=== PATIENT | male | born 1995 | race Asian ===

== ENCOUNTER 2024-07-01 10:03 | Emergency (ER) | payer SELFPAY ==
[2024-07-01 10:03] VITALS: BMI 29.2
[2024-07-01 10:05] VITALS: BP 138/94
--- NOTE | 2024-07-01 10:32 | ED.GENMED ---
History of Present Illness
General
Chief Complaint: Flank Pain
Source: patient
Exam Limitations: none
Time Seen by Provider: 07/01/24 10:20
Nursing documentation reviewed up to this point in time: agreed with
History of Present Illness
History of Present Illness:
29-year-old male without significant past medical history presenting to the emergency department today with concerns of right-side flank pain starting this morning described as intermittently sharp and ongoingly achy no urinary symptoms 1 episode of
vomiting no chest pain shortness of breath no similar symptoms in the past.d
Past History
Past History
ED Past Medical History: None
ED Past Surgical History: None
Social History
Tobacco: Smoker
Alcohol: Occasional
Drug: None
Living: with family
Review of Systems
Review of Systems
Allergies reviewed?: Yes
All Other Systems: ROS reviewed and negative except as documented in HPI and ROS
Phy Exam
Physical Exam
Physical Exam:
GENERAL: Alert , in no apparent distress
EYE: pupils equal and reactive
NECK: Supple, no significant adenopathy.
ENT: o/p clr, mmm.
CARDIAC: Regular rate and rhythm .
LUNGS: Clear breath sounds bilaterally, no acute respiratory distress, no wheezes/rales/rhonchi
ABDOMEN: Soft, without focal tenderness, no r/g, no cvat
NEUROLOGICAL: Alert and oriented, no focal neuro deficits
SKIN: Warm and dry, skin intact.
MUSCULOSKELETAL: No edema, well perfused.
PSYCH: Normal and appropriate interaction.
Course
Orders/Labs/Results
Orders:
Orders
07/01/24 10:35
0.9% Sodium Chloride 1000 ml [Nss] 1,000 ml IV BOLUS
Ketorolac [Toradol] 30 mg IV NOW STA
Ondansetron Injectable [Zofran] 4 mg IV NOW STA
07/01/24 10:39
CT Abd/pel Without Iv Or Oral Urgent
Comment:
Reason For Exam: right flank pain
07/01/24 10:52
Complete Blood Count/With Diff Urgent
Comprehensive Metabolic Panel Urgent
Urinalysis Reflex To Culture Urgent
Date Specimen was Collected: 07/01/24
Time Specimen was Collected: 10:51
Urine Microscopic Reflex Cult Urgent
07/01/24 13:27
Tamsulosin [Flomax] 0.4 mg PO NOW STA
07/01/24 13:31
Doxycycline [Vibramycin] 100 mg PO NOW STA
Abnormal Lab Results
07/01/24
10:52
RBC 7.01 H 10^6/uL
(4.70-6.10)
MCV 61.3 L fL
(80.0-94.0)
MCH 19.4 L pg
(27.0-31.0)
MCHC 31.6 L g/dL
(33.0-37.0)
RDW 18.7 H %
(11.5-14.5)
Absolute Monos (auto) 0.7 H 10^3/uL
(0.1-0.6)
Glucose 164 H mg/dl
(70-99)
AST 65 H U/L
(17-59)
ALT 70 H U/L
(0-50)
Urine Ketones Trace A
(Negative)
Ur Occult Blood Reflex 4+ A
(Negative)
Urine Bilirubin 1+ A
(Negative)
Leukocyte Esterase Rfl Trace A
(Negative)
Urine RBC >100 A /HPF
(0-2)
Urine Bacteria (Reflex) Few A
(Negative)
07/01/24 10:52
07/01/24 10:52
Vital Signs
Initial and Last Documented VS:
Initial Vital Signs
Temp Pulse Resp BP Pulse Ox
100.8 F H 75 18 138/94 98
07/01/24 10:05 07/01/24 10:05 07/01/24 10:05 07/01/24 10:05 07/01/24 10:05
Last Documented Vital Signs
Temp Pulse Resp BP Pulse Ox
97.9 F 65 16 106/64 99
07/01/24 11:53 07/01/24 12:00 07/01/24 12:00 07/01/24 12:00 07/01/24 12:00
MDM/Problems Addressed
MDM/Problems Addressed:
29-year-old male presenting to the emergency department today with concerns of right-sided flank discomfort that started this morning. Upon arrival patient with low-grade temperature otherwise vital signs are normal. Patient without significant
reproducible pain. Symptoms potentially consistent with kidney stone. Plan for CT scan labs for further assessment. CT scan confirming right-sided 5 mm proximal ureteral stone. Associated hydro. No white count no evidence of infection on
urinalysis. Temperature improved after receiving Toradol. Unclear specific explanation of initial fever. This was discussed with urology they recommended treating with doxycycline Flomax pain medication but otherwise can trial passage as
outpatient return precautions were given but otherwise patient very well up. Stable for outpatient management.
*Critical Care Note
Total Time (30-74mins, 75-104mins- exclusive of procedures): Not Applicable
ED Attending Note
-
Portions of this chart may have been created with voice recognition software.� Occasional wrong word or��sound alike� substitutions may have occurred due to the inherent limitations of voice recognition software.
Discharge Plan
Departure
Patient Disposition: Home (Routine Discharge)
Date of Disposition: 07/01/24
Time of Disposition: 13:34
Patient with high blood pressure during this ER visit?: No
Condition: Good
Covid-19: Not Applicable
Discharge Problem:
Calculus, ureteral
Instructions: Renal Colic (DC), How to Strain Your Urine
Prescriptions:
New
ibuprofen 600 mg tablet
600 mg PO Q8H PRN (Reason: Pain) 7 Days Qty: 20 0RF
tamsulosin [Flomax] 0.4 mg capsule
0.4 mg PO DAILY Qty: 7 0RF
ondansetron 4 mg tablet,disintegrating
4 mg PO Q8H PRN (Reason: nausea and vomiting) Qty: 7 0RF
doxycycline hyclate 100 mg tablet
100 mg PO BID 7 Days Qty: 14 0RF
Referrals:
Manuel Mendes MD [Family Provider] -
Saravanan Andrade Jr., MD [Active] - Follow up in 5-7 days
Activity Restrictions/Additional Instructions:
You came to the emergency department today with concerns of flank pain you are found to have a ureteral stone. Please urinate into a strainer and take the medication is not up with symptoms until hopeful passage at home. Otherwise follow-up
closely with urology for further assessment within the next week. Return to the emergency department immediately for any worsening, new or concerning symptoms.
Interventions
Interventions:
*Risk Screen - Suicide Last Done: 07/01/24 10:05
*General Assessment Last Done: 07/01/24 10:05
*Neglect/Abuse Screening Last Done: 07/01/24 10:05
ED- Fall Risk Assessment Last Done: 07/01/24 11:00
BA-Yofswm-Vutiexywtj Assessment Last Done: 07/01/24 11:00
ED-Male Genitourinary Assessment Last Done: 07/01/24 11:00
Discharge Date and Time
Print Language: UKRAINIAN
[2024-07-01] MEDS: NSS 1000 IV (10:47)
[2024-07-01] MEDS: TORADOL 30 MG IV (10:48)
[2024-07-01] MEDS: ZOFRAN 4 MG IV (10:49)
[2024-07-01 11:03] LABS: Urine Albumin Trace (Neg - Trace); Urine Bilirubin 1+ (Negative); Urine Character Clear (Clear); Urine Color Yellow; Urine Glucose Negative (Negative); Urine Ketone Trace (Negative); Urine Leukocyte Trace (Negative); Urine Nitrite Negative (Negative); Urine Occult Blood 4+ (Negative); Urine Specific Gravity 1.025 (<1.030); Urine Urobilinogen 1+ (Neg - 1+)
[2024-07-01 11:19] LABS: ALT (SGPT) 70 U/L (0-50); AST (SGOT) 65 U/L (17-59); Albumin 4.8 g/dl (3.5-5.0); Alkaline Phosphatase 79 U/L (38-126); Blood Urea Nitrogen 13 mg/dl (9-20); Calcium 9.6 mg/dl (8.4-10.2); Carbon Dioxide 24 mmol/L (22-30); Chloride 104 mmol/L (98-107); Estimated Creatinine Clearance > 125 ml/min; Glucose 164 mg/dl (70-99); Potassium 4.1 mmol/L (3.5-5.1); Sodium 140 mmol/L (135-145); Total Bilirubin 1.3 mg/dl (0.2-1.3); Total Protein 7.3 g/dl (6.3-8.2); Urine Bacteria Few (Negative); Urine Mucus Moderate; eGFR > 60.00
[2024-07-01 11:23] LABS: Urine Red Blood Cell >100 /HPF (0-2)
[2024-07-01 11:24] LABS: % Basophils 1.3 % (0-2); % Eosinophils 4.2 % (0-6); % Immature Granulocytes 0.4 % (0-0.5); % Lymphocytes 23.2 % (20.5-51.1); % Monocytes 6.6 % (1.7-9.3); % Neutrophils 64.3 % (42.2-75.2); Absolute Basophils 0.1 10^3/uL (0-0.2); Absolute Eosinophils 0.4 10^3/uL (0-0.7); Absolute Lymphocytes 2.3 10^3/uL (1.2-3.4); Absolute Monocytes 0.7 10^3/uL (0.1-0.6); Absolute Neutrophils 6.3 10^3/uL (1.4-6.5); Hemoglobin 13.6 g/dL (13.0-18.0); Mean Corp Hgb Conc. 31.6 g/dL (33.0-37.0); Mean Corpuscular Hgb 19.4 pg (27.0-31.0); Mean Corpuscular Volume 61.3 fL (80.0-94.0); Mean Platelet Volume 10.2 fL (7.4-10.4); Nucleated Red Blood Cells % 0 % (-); Platelet Count 225 10^3/uL (130-400); Red Blood Cell Count 7.01 10^6/uL (4.70-6.10); Red Cell Dist. Width 18.7 % (11.5-14.5); White Blood Cell Count 9.8 10^3/uL (4.8-10.8)
[2024-07-01 11:26] LABS: Urine Hyaline Cast 0-2 /LPF (0-2); Urine Squamous Cell 0-2 /LPF (Few)
[2024-07-01 11:52] VITALS: BP 102/64
[2024-07-01 12:00] VITALS: BP 106/64
[2024-07-01 13:00] VITALS: BP 103/66
[2024-07-01] MEDS: VIBRAMYCIN 100 MG PO (13:42)
[2024-07-01] MEDS: FLOMAX 0.4 MG PO (13:42)
== END 2024-07-01 13:49 | disposition home or self-care (01) ==
LOC: EMR 10:03
PROVIDERS: Physician Assistant; EMERGENCY PHYSICIAN Student in an Organized Health Care Education/Training Program; FAMILY PHYSICIAN Family Medicine
DX: N20.1 Calculus of ureter (principal); R11.10 Vomiting, unspecified; F32.A Depression, unspecified; F17.200 Nicotine dependence, unspecified, uncomplicated
CPT/HCPCS: 99284; 96374; 96375; 96361; 74176; 80053; 81003; 81015; 85025

== ENCOUNTER 2024-07-22 11:49 | Emergency (ER) | payer SELFPAY ==
[2024-07-22 11:56] VITALS: BP 130/92
--- NOTE | 2024-07-22 12:36 | ED.GENMED ---
History of Present Illness
General
Chief Complaint: Flank Pain
Source: patient, records, previous radiology exam and previous hospital records
Exam Limitations: none
Time Seen by Provider: 07/22/24 12:20
Nursing documentation reviewed up to this point in time: agreed with
History of Present Illness
History of Present Illness:
29-year-old male presents with right flank pain onset 2 and half weeks ago seen in the ER diagnosed with a right proximal kidney stone discharged home has a follow-up appointment next week with Dr. Andrade feeling okay initially states the past 3 to
4 days pain has been pretty severe no fevers but does feel nauseous, pain radiates in the right lower abdomen this is his first kidney stone, does not believe that he passed a stone
Past History
Past History
ED Past Medical History: None
ED Past Surgical History: None
Social History
Tobacco: Smoker
Alcohol: Occasional
Drug: None
Personal:
Living: with family
Employment: Employed
Review of Systems
Review of Systems
All Other Systems: Not applicable
Constitutional: Denies fever or fatigue
EENT: Reports no symptoms
Respiratory: Reports no symptoms
Cardiac: Reports no symptoms
ABD/GI: Reports abdominal pain and nausea
: Reports flank pain
Musculoskeletal: Reports no symptoms
Phy Exam
Physical Exam
Physical Exam:
Physical Exam
General: 29 male looks uncomfortable
Neck: No jaundice
Heart: s1/s2 regular rate and rhythm, no murmur. equal radial pulses.
Lungs: no acute respiratory distress. clear bilaterally
Abdomen: Tender in the right flank and right mid abdomen
Neuro: alert and oriented. no focal neurological deficits
Skin: no rash
Psychiatric: well kept. interactive and cooperative
Extremities: no edema.
Course
Orders/Labs/Results
Orders:
Orders
07/22/24 12:29
CT Abd/pel Without Iv Or Oral Urgent
Comment:
Reason For Exam: R lank pain
IV Insert/Care/Rem.- Treatment PRN
0.9% Sodium Chloride 1000 ml [Nss] 1,000 ml IV BOLUS
HYDROmorphone [Dilaudid] 1 mg IV NOW STA
Ondansetron Injectable [Zofran] 4 mg IV NOW STA
07/22/24 12:49
Complete Blood Count/With Diff Urgent
Comprehensive Metabolic Panel Urgent
Urinalysis Reflex To Culture Urgent
Date Specimen was Collected: 07/22/24
Time Specimen was Collected: 12:37
Urine Microscopic Reflex Cult Urgent
07/22/24 14:03
Ketorolac [Toradol] 30 mg IV NOW STA
Abnormal Lab Results
07/22/24
12:49
WBC 12.3 H 10^3/uL
(4.8-10.8)
RBC 7.19 H 10^6/uL
(4.70-6.10)
MCV 60.9 L fL
(80.0-94.0)
MCH 19.2 L pg
(27.0-31.0)
MCHC 31.5 L g/dL
(33.0-37.0)
RDW 18.2 H %
(11.5-14.5)
MPV 11.2 H fL
(7.4-10.4)
Absolute Neuts (auto) 7.5 H 10^3/uL
(1.4-6.5)
Absolute Monos (auto) 1.1 H 10^3/uL
(0.1-0.6)
Glucose 122 H mg/dl
(70-99)
Total Bilirubin 2.3 H mg/dl
(0.2-1.3)
ALT 61 H U/L
(0-50)
Ur Occult Blood Reflex 1+ A
(Negative)
Leukocyte Esterase Rfl Trace A
(Negative)
Urine RBC 16-20 A /HPF
(0-2)
Urine Bacteria (Reflex) Few A
(Negative)
07/22/24 12:49
07/22/24 12:49
Vital Signs
Initial and Last Documented VS:
Initial Vital Signs
Temp Pulse Resp BP Pulse Ox
98.5 F 85 18 130/92 98
07/22/24 11:56 07/22/24 11:56 07/22/24 11:56 07/22/24 11:56 07/22/24 11:56
Last Documented Vital Signs
Temp Pulse Resp BP Pulse Ox
98.5 F 69 18 120/72 97
07/22/24 11:56 07/22/24 15:22 07/22/24 15:22 07/22/24 15:22 07/22/24 15:22
MDM/Problems Addressed
Differential Diagnosis Includes:
Renal colic, ureteral colic, UTI dehydration
MDM/Problems Addressed:
Right flank
*Critical Care Note
Total Time (30-74mins, 75-104mins- exclusive of procedures): Not Applicable
Update Note
Update Note:
Update labs noted CAT scan noted try to get the patient comfortable, message sent to urology
CT reviewed patient's stone is migrating may be passable he is pain-free now will sent home with stronger pain meds he has an appointment on the 10th already scheduled
ED Attending Note
-
Portions of this chart may have been created with voice recognition software.� Occasional wrong word or��sound alike� substitutions may have occurred due to the inherent limitations of voice recognition software.
Discharge Plan
Departure
Patient Disposition: Home (Routine Discharge)
Date of Disposition: 07/22/24
Time of Disposition: 14:59
Patient with high blood pressure during this ER visit?: No
Condition: Good
Covid-19: Not Applicable
Discharge Problem:
Kidney stone on right side
Instructions: Kidney Stones (DC), Renal Colic (DC), Flank Pain (DC), How to Strain Your Urine, Narcotic Pain Medication
Prescriptions:
New
oxycodone 5 mg tablet
5 mg PO Q4H PRN (Reason: Pain) Qty: 20 0RF
ibuprofen 600 mg tablet
600 mg PO Q6H PRN (Reason: Pain) Qty: 30 0RF
tamsulosin [Flomax] 0.4 mg capsule
0.4 mg PO HS Qty: 10 0RF
ondansetron 4 mg tablet,disintegrating
4 mg PO Q8H PRN (Reason: nausea and vomiting) Qty: 20 0RF
No Action
cetirizine 10 mg Tablet
10 mg PO DAILY PRN (Reason: allergies )
Referrals:
Manuel Mendes MD [Family Provider] -
Activity Restrictions/Additional Instructions:
Keep your appointment with Dr. Andrade
Interventions
Interventions:
*Risk Screen - Suicide Last Done: 07/22/24 12:58
*General Assessment Last Done: 07/22/24 12:58
*Neglect/Abuse Screening Last Done: 07/22/24 12:58
ED- Fall Risk Assessment Last Done: 07/22/24 12:58
*ED COVID-19 Vaccine History Last Done: 07/22/24 12:58
*Nursing Disposition Last Done: 07/22/24 15:22
RW-Ieejbl-Hwcjefrgld Assessment Last Done: 07/22/24 12:57
ED-Male Genitourinary Assessment Last Done: 07/22/24 12:57
Discharge Date and Time
Discharge Date/Time: 07/22/24 15:23
Print Language: FRISIAN
[2024-07-22] MEDS: DILAUDID 1 MG IV (12:46)
[2024-07-22] MEDS: NSS 1000 IV (12:46)
[2024-07-22] MEDS: ZOFRAN 4 MG IV (12:47)
[2024-07-22 12:59] LABS: Urine Albumin Negative (Neg - Trace); Urine Bilirubin Negative (Negative); Urine Character Clear (Clear); Urine Color Yellow; Urine Glucose Negative (Negative); Urine Ketone Negative (Negative); Urine Leukocyte Trace (Negative); Urine Nitrite Negative (Negative); Urine Occult Blood 1+ (Negative); Urine Specific Gravity 1.015 (<1.030); Urine Urobilinogen Negative (Neg - 1+); Urine pH 6.5 (5.0-9.0)
[2024-07-22 13:24] LABS: Urine Red Blood Cell 16-20 /HPF (0-2); Urine Squamous Cell 0-2 /LPF (Few)
[2024-07-22 13:25] LABS: Urine Bacteria Few (Negative); Urine White Cell 0-2 /HPF (0-5)
[2024-07-22 14:07] LABS: % Basophils 1.4 % (0-2); % Eosinophils 3.7 % (0-6); % Immature Granulocytes 0.3 % (0-0.5); % Lymphocytes 24.4 % (20.5-51.1); % Monocytes 9.2 % (1.7-9.3); Absolute Basophils 0.2 10^3/uL (0-0.2); Absolute Eosinophils 0.5 10^3/uL (0-0.7); Absolute Monocytes 1.1 10^3/uL (0.1-0.6); Absolute Neutrophils 7.5 10^3/uL (1.4-6.5); Hematocrit 43.8 % (39.0-52.0); Hemoglobin 13.8 g/dL (13.0-18.0); Mean Corp Hgb Conc. 31.5 g/dL (33.0-37.0); Mean Corpuscular Hgb 19.2 pg (27.0-31.0); Mean Corpuscular Volume 60.9 fL (80.0-94.0); Mean Platelet Volume 11.2 fL (7.4-10.4); Nucleated Red Blood Cells % 0 % (-); Platelet Count 229 10^3/uL (130-400); Red Blood Cell Count 7.19 10^6/uL (4.70-6.10); Red Cell Dist. Width 18.2 % (11.5-14.5); White Blood Cell Count 12.3 10^3/uL (4.8-10.8)
[2024-07-22] MEDS: TORADOL 30 MG IV (14:08)
[2024-07-22 14:10] VITALS: BP 123/82; BMI 29.4
[2024-07-22 14:25] LABS: ALT (SGPT) 61 U/L (0-50); AST (SGOT) 55 U/L (17-59); Albumin 4.9 g/dl (3.5-5.0); Alkaline Phosphatase 65 U/L (38-126); Blood Urea Nitrogen 12 mg/dl (9-20); Calcium 9.4 mg/dl (8.4-10.2); Carbon Dioxide 22 mmol/L (22-30); Chloride 102 mmol/L (98-107); Estimated Creatinine Clearance 105 ml/min; Glucose 122 mg/dl (70-99); Potassium 3.8 mmol/L (3.5-5.1); Sodium 141 mmol/L (135-145); Total Bilirubin 2.3 mg/dl (0.2-1.3); Total Protein 7.4 g/dl (6.3-8.2); eGFR > 60.00
[2024-07-22 15:22] VITALS: BP 120/72
== END 2024-07-22 15:23 | disposition home or self-care (01) ==
LOC: EMR 11:49
PROVIDERS: EMERGENCY PHYSICIAN Emergency Medicine; FAMILY PHYSICIAN Family Medicine
DX: N20.0 Calculus of kidney (principal); R10.9 Unspecified abdominal pain; R11.0 Nausea; F32.A Depression, unspecified; F17.200 Nicotine dependence, unspecified, uncomplicated
CPT/HCPCS: 99284; 96374; 96375 ×2; 74176; 80053; 81003; 81015; 85025

== ENCOUNTER 2024-11-14 20:27 | Emergency (ER) | payer OTHER, SELFPAY ==
[2024-11-14 20:31] VITALS: BP 147/93
[2024-11-14] MEDS: ATIVAN 1 MG PO (21:26)
--- NOTE | 2024-11-14 22:19 | ED.GENMED ---
History of Present Illness
<Martin Rodriguez PA-C - Last Filed: 11/18/24 13:25>
General
Chief Complaint: Crisis Evaluation
Time Seen by Provider: 11/14/24 21:20
History of Present Illness
History of Present Illness:
29-year-old male with history of bipolar disorder presents to the ER via police for evaluation of possible 'mental health problems'. Apparently the patient was wandering around his neighborhood knocking on neighbors doors asking for help. He
states that he was doing this because he feels as though his parents may kick him out of their home soon. He denies any SI HI AH or VH at this time. He states that he is very anxious and worried that we are going to lock him in the exam room. He
denies any illicit substance use. I discussed the situation with the parents via phone and they are concerned about his increasingly erratic behavior, seems to have poor memory and is occasionally hallucinating. He is increasingly anxious and
eloping from their home wandering around the neighborhood. He has also been confabulating about 'high-level government job' and seems to be quite paranoid recently. They deny any knowledge of SI or HI. They are also concerned about polysubstance
abuse.
Past History
<Martin Rodriguez PA-C - Last Filed: 11/18/24 13:25>
Past History
ED Past Medical History: None
ED Past Surgical History: None
Social History
Tobacco: Smoker
Alcohol: Occasional
Drug: None
Personal:
Living: with family
Employment: Employed
Review of Systems
<Martin Rodriguez PA-C - Last Filed: 11/18/24 13:25>
Review of Systems
Allergies reviewed?: Yes
All Other Systems: ROS reviewed and negative except as documented in HPI and ROS
Phy Exam
<Martin Rodriguez PA-C - Last Filed: 11/18/24 13:25>
Physical Exam
Physical Exam:
GEN: Well appearing, NAD, WDWN
HEENT: Oral mucosa moist, no scleral icterus
Cardiac: Tachycardic
Lung: No respiratory distress, no tachypnea
MSK: No gross deformity or injuries
Skin: Good color, no pallor or jaundice, no rashes
Neuro: AO x3, moves all extremities freely
Psych: Disheveled, anxious, difficult to redirect
Course
<Martin Rodriguez PA-C - Last Filed: 11/18/24 13:25>
Orders/Labs/Results
Orders:
Orders
11/14/24 21:21
Crisis Consult Urgent
Reason for Consult: anxiety
Lorazepam [Ativan] 1 mg PO NOW STA
11/15/24 04:21
Alcohol Urgent
CMP [Comprehensive Metabolic Panel] Urgent
Complete Blood Count/With Diff Urgent
11/15/24 04:23
Add On- LAB Urgent
Tests Added?: alcohol
11/15/24 09:55
Fentanyl, Urine Urgent
Urine Drug Abuse Screen Urgent
Date Specimen was Collected: 11/15/24
Time Specimen was Collected: 09:53
Abnormal Lab Results
11/15/24 11/15/24
04:21 09:55
WBC 14.4 H 10^3/uL
(4.8-10.8)
RBC 6.92 H 10^6/uL
(4.70-6.10)
MCV 62.0 L fL
(80.0-94.0)
MCH 19.2 L pg
(27.0-31.0)
MCHC 31.0 L g/dL
(33.0-37.0)
RDW 18.5 H %
(11.5-14.5)
MPV 10.7 H fL
(7.4-10.4)
Abs Immat Gran (auto) 0.1 H 10^3/uL
(0-0.05)
Absolute Neuts (auto) 7.1 H 10^3/uL
(1.4-6.5)
Absolute Lymphs (auto) 5.3 H 10^3/uL
(1.2-3.4)
Absolute Monos (auto) 1.4 H 10^3/uL
(0.1-0.6)
Monocytes % 9.5 H %
(1.7-9.3)
Potassium 3.4 L mmol/L
(3.5-5.1)
BUN 7 L mg/dl
(9-20)
Creatinine 0.6 L mg/dL
(0.7-1.3)
Glucose 107 H mg/dl
(70-99)
Total Bilirubin 1.5 H mg/dl
(0.2-1.3)
AST 73 H U/L
(17-59)
ALT 74 H U/L
(0-50)
U Benzodiazepines Scrn Positive H
(Negative)
U Marijuana (THC) Screen Positive H
(Negative)
11/15/24 04:21
11/15/24 04:21
Vital Signs
Initial and Last Documented VS:
Initial Vital Signs
Temp Pulse Resp BP Pulse Ox
98.2 F 120 20 147/93 98
11/14/24 20:31 11/14/24 20:31 11/14/24 20:31 11/14/24 20:31 11/14/24 20:31
Last Documented Vital Signs
Temp Pulse Resp BP Pulse Ox
98.2 F 120 20 147/93 98
11/14/24 20:31 11/14/24 20:31 11/14/24 20:31 11/14/24 20:31 11/14/24 20:31
<Jomar Jackson, DO - Last Filed: 11/15/24 07:00>
Orders/Labs/Results
Orders:
Orders
11/14/24 21:21
Crisis Consult Urgent
Reason for Consult: anxiety
Lorazepam [Ativan] 1 mg PO NOW STA
11/15/24 04:21
Alcohol Urgent
CMP [Comprehensive Metabolic Panel] Urgent
Complete Blood Count/With Diff Urgent
11/15/24 04:23
Add On- LAB Urgent
Tests Added?: alcohol
11/15/24 09:55
Fentanyl, Urine Urgent
Urine Drug Abuse Screen Urgent
Date Specimen was Collected: 11/15/24
Time Specimen was Collected: 09:53
Abnormal Lab Results
11/15/24 11/15/24
04:21 09:55
WBC 14.4 H 10^3/uL
(4.8-10.8)
RBC 6.92 H 10^6/uL
(4.70-6.10)
MCV 62.0 L fL
(80.0-94.0)
MCH 19.2 L pg
(27.0-31.0)
MCHC 31.0 L g/dL
(33.0-37.0)
RDW 18.5 H %
(11.5-14.5)
MPV 10.7 H fL
(7.4-10.4)
Abs Immat Gran (auto) 0.1 H 10^3/uL
(0-0.05)
Absolute Neuts (auto) 7.1 H 10^3/uL
(1.4-6.5)
Absolute Lymphs (auto) 5.3 H 10^3/uL
(1.2-3.4)
Absolute Monos (auto) 1.4 H 10^3/uL
(0.1-0.6)
Monocytes % 9.5 H %
(1.7-9.3)
Potassium 3.4 L mmol/L
(3.5-5.1)
BUN 7 L mg/dl
(9-20)
Creatinine 0.6 L mg/dL
(0.7-1.3)
Glucose 107 H mg/dl
(70-99)
Total Bilirubin 1.5 H mg/dl
(0.2-1.3)
AST 73 H U/L
(17-59)
ALT 74 H U/L
(0-50)
U Benzodiazepines Scrn Positive H
(Negative)
U Marijuana (THC) Screen Positive H
(Negative)
11/15/24 04:21
11/15/24 04:21
Vital Signs
Initial and Last Documented VS:
Initial Vital Signs
Temp Pulse Resp BP Pulse Ox
98.2 F 120 20 147/93 98
11/14/24 20:31 11/14/24 20:31 11/14/24 20:31 11/14/24 20:31 11/14/24 20:31
Last Documented Vital Signs
Temp Pulse Resp BP Pulse Ox
98.2 F 120 20 147/93 98
11/14/24 20:31 11/14/24 20:31 11/14/24 20:31 11/14/24 20:31 11/14/24 20:31
<Martin Rodriguez PA-C - Last Filed: 11/18/24 13:25>
MDM/Problems Addressed
MDM/Problems Addressed:
Patient initially requested to leave the hospital and began ambulating toward the exit doors, after discussion in the hallway he was willing to remain in the ED for further evaluation. After a discussion with his family he is willing to seek
inpatient mental health treatment however there are no criteria to keep the patient against as well should he again choose to leave the ED. Crisis will evaluate the patient and discuss options. He does not appear to be acutely psychotic and does
not display any signs of immediate self-harm or harm to others.
<Martin Rodriguez PA-C - Last Filed: 11/18/24 13:25>
*Critical Care Note
Total Time (30-74mins, 75-104mins- exclusive of procedures): Not Applicable
<Jomar Jackson DO - Last Filed: 11/15/24 07:00>
Update Note
Update Note:
Patient accepted at [facility] however they wanted labs. White count 14.4, hemoglobin 13.3, chemistries unremarkable, minimal elevation of total bili and minimal elevation of transaminases. Alcohol undetected. UDS pending
ED Attending Note
<Martin Rodriguez PA-C - Last Filed: 11/18/24 13:25>
-
Portions of this chart may have been created with voice recognition software.� Occasional wrong word or��sound alike� substitutions may have occurred due to the inherent limitations of voice recognition software.
Discharge Plan
Departure
Patient Disposition: Psych Facility
Date of Disposition: 11/15/24
Time of Disposition: 00:52
Discharge Problem:
Anxiety
Prescriptions:
No Action
oxycodone 5 mg tablet
5 mg PO Q4H PRN (Reason: Pain) Qty: 20 0RF
ibuprofen 600 mg tablet
600 mg PO Q6H PRN (Reason: Pain) Qty: 30 0RF
tamsulosin [Flomax] 0.4 mg capsule
0.4 mg PO HS Qty: 10 0RF
ondansetron 4 mg tablet,disintegrating
4 mg PO Q8H PRN (Reason: nausea and vomiting) Qty: 20 0RF
cetirizine 10 mg Tablet
10 mg PO DAILY PRN (Reason: allergies )
Referrals:
UNKNOWN - PT DOES,NOT KNOW [Family Provider] -
Interventions
Interventions:
*Risk Screen - Suicide Last Done: 11/14/24 20:29
*General Assessment Last Done: 11/14/24 20:31
*Neglect/Abuse Screening Last Done: 11/14/24 20:31
ED- Fall Risk Assessment Last Done: 11/15/24 12:54
*ED COVID-19 Vaccine History Last Done: 11/15/24 12:54
*Nursing Disposition Last Done: 11/15/24 12:54
ED-Psychological Assessment Last Done: 11/14/24 21:15
Discharge Date and Time
Discharge Date/Time: 11/15/24 12:56
Print Language: JAMA[place]
[2024-11-15 04:56] LABS: ALT (SGPT) 74 U/L (0-50); AST (SGOT) 73 U/L (17-59); Albumin 4.6 g/dl (3.5-5.0); Alkaline Phosphatase 80 U/L (38-126); Blood Urea Nitrogen 7 mg/dl (9-20); Calcium 9.1 mg/dl (8.4-10.2); Carbon Dioxide 25 mmol/L (22-30); Chloride 105 mmol/L (98-107); Glucose 107 mg/dl (70-99); Potassium 3.4 mmol/L (3.5-5.1); Sodium 141 mmol/L (135-145); Total Bilirubin 1.5 mg/dl (0.2-1.3); Total Protein 7.1 g/dl (6.3-8.2); eGFR > 60.00
[2024-11-15 05:00] LABS: Alcohol None Detected
[2024-11-15 05:28] LABS: Hematocrit 42.9 % (39.0-52.0); Hemoglobin 13.3 g/dL (13.0-18.0); Mean Corpuscular Hgb 19.2 pg (27.0-31.0); Mean Platelet Volume 10.7 fL (7.4-10.4); Platelet Count 250 10^3/uL (130-400); Red Blood Cell Count 6.92 10^6/uL (4.70-6.10); Red Cell Dist. Width 18.5 % (11.5-14.5); White Blood Cell Count 14.4 10^3/uL (4.8-10.8)
[2024-11-15 07:32] LABS: % Eosinophils 2.5 % (0-6); % Immature Granulocytes 0.4 % (0-0.5); % Lymphocytes 37.1 % (20.5-51.1); % Monocytes 9.5 % (1.7-9.3); % Neutrophils 49.5 % (42.2-75.2); Absolute Basophils 0.1 10^3/uL (0-0.2); Absolute Eosinophils 0.4 10^3/uL (0-0.7); Absolute Immature Granulocytes 0.1 10^3/uL (0-0.05); Absolute Lymphocytes 5.3 10^3/uL (1.2-3.4); Absolute Monocytes 1.4 10^3/uL (0.1-0.6); Absolute Neutrophils 7.1 10^3/uL (1.4-6.5); Nucleated Red Blood Cells % 0.1 % (-)
[2024-11-15 10:21] LABS: Amphetamines Negative (Negative); Barbiturates Negative (Negative); Benzodiazepines Positive (Negative); Buprenorphine Negative (Negative); Cocaine Negative (Negative); Marijuana Positive (Negative); Methadone Negative (Negative); Methamphetamines Negative (Negative); Opiates Negative (Negative); Phencyclidine Negative (Negative); Tricyclic Antidepressants Negative (Negative)
[2024-11-15 10:47] LABS: Fentanyl, Urine Negative (Negative)
== END 2024-11-15 12:56 ==
LOC: EMR 20:27
PROVIDERS: Emergency Medicine; Physician Assistant; EMERGENCY PHYSICIAN Emergency Medicine
DX: F41.9 Anxiety disorder, unspecified (principal); R44.3 Hallucinations, unspecified; F31.9 Bipolar disorder, unspecified; F17.200 Nicotine dependence, unspecified, uncomplicated
CPT/HCPCS: 99285; 80053; 80306; 80307; 82077; 85025